=== PATIENT | female | born 1990 | race Caucasian/White ===

== ENCOUNTER 2018-08-23 17:21 | Emergency (ER) | payer OTHER ==
[~2018-08-23] VITALS: Ht 165.1 cm; Wt 68.0 kg
[2018-08-23] MEDS ORDERED: PRENATABS RX T1 EACH (17:45)
== END 2018-08-23 22:38 | disposition home or self-care (01) ==
LOC: ER 17:21
DX: O02.1 Missed abortion (principal)

== ENCOUNTER → 2018-08-25 | Day surgery (SDC) | payer OTHER ==
[~2018-08-25] VITALS: Ht 165.1 cm; Wt 68.0 kg
[~2018-08-25] MED LIST: PRENATABS RX T1 EACH
== END | disposition home or self-care (01) ==
LOC: ER 09:15 → CIR.AMB 11:40
DX: O02.1 Missed abortion (principal); Z3A.01 Less than 8 weeks gestation of pregnancy

== ENCOUNTER 2019-07-01 09:33 | Emergency (ER) | payer OTHER ==
[~2019-07-01] VITALS: Ht 165.1 cm; Wt 68.0 kg
[2019-07-01] MEDS ORDERED: ZITHROMAX200 MG PO (13:10)
== END 2019-07-01 13:10 | disposition home or self-care (01) ==
LOC: ER 09:33
DX: O98.512 Other viral diseases complicating pregnancy, second trimester (principal); B34.9 Viral infection, unspecified; B96.0 Mycoplasma pneumoniae [M. pneumoniae] as the cause of diseases classified elsewhere; Z34.02 Encounter for supervision of normal first pregnancy, second trimester

== ENCOUNTER → 2019-09-12 | Outpatient (CLI) | payer OTHER ==
[~2019-09-12] MED LIST changes: +ZITHROMAX200 MG PO
== END | disposition home or self-care (01) ==
LOC: PRENATAL 15:00
PROVIDERS: ATTEND Obstetrics & Gynecology Obstetrics
DX: O35.3XX0 Maternal care for (suspected) damage to fetus from viral disease in mother, not applicable or unspecified (principal); O34.219 Maternal care for unspecified type scar from previous cesarean delivery; Z34.00 Encounter for supervision of normal first pregnancy, unspecified trimester

== ENCOUNTER 2019-11-19 14:51 | Inpatient (IN) | payer OTHER ==
[~2019-11-19] VITALS: Ht 165.1 cm; Wt 79.4 kg
== END 2019-11-19 18:14 | disposition left against medical advice (07) | DRG 831 ==
LOC: LDR 14:51
PROVIDERS: ADMIT Obstetrics & Gynecology Obstetrics; ATTEND Obstetrics & Gynecology Obstetrics
DX: O98.513 Other viral diseases complicating pregnancy, third trimester (principal); U07.1 COVID-19